=== PATIENT | female | born 1945 | race Caucasian/White ===

== ENCOUNTER → 2020-09-03 | Outpatient (CLI) | payer MEDICARE ==
[~2020-09-03] MED LIST: AMLO5TAB88 PO; ASPI-1497 PO; ATOR40TA70 PO; CHOL500063 PO; DOCU-286 PO; ELDERBERRY GUMMIES PO; GABA-531 PO; IBUP-2029 PO; LACTATED RINGERS 1,000 ML IV SCH; LISI-604 PO; VITAMIN B12 PO
== END | disposition home or self-care (01) ==
LOC: LAB 13:22
PROVIDERS: ATTEND Obstetrics & Gynecology
DX: Z01.812 Encounter for preprocedural laboratory examination (principal); Z20.828 Contact with and (suspected) exposure to other viral communicable diseases
CPT/HCPCS: C9803; U0003

== ENCOUNTER 2020-09-05 07:05 | Day surgery (SDC) | payer MEDICARE ==
[~2020-09-05] VITALS: Ht 139.7 cm; Wt 54.4 kg
[2020-09-05 07:40] LABS: BASOPHILS % 1.2 % (0.0-2.0); EOSINOPHILS % 7.1 % (0.0-5.0); HEMATOCRIT. 41.2 % (36.0-48.0); HEMOGLOBIN. 14.2 g/dL (12.0-16.0); LYMPHOCYTES % 26.5 % (20.0-50.0); MEAN CORPUSCULAR VOLUME 84.4 fL (81.0-99.0); MEAN PLATELET VOLUME 8.3 fl (7.4-10.4); MONOCYTES % 9.7 % (2.0-8.0); NEUTROPHILS % 55.5 % (40.0-76.0); PLATELET 329 x1000/uL (130-400); RED BLOOD CELL COUNT 4.88 mill/uL (4.2-5.4); RED CELL DISTRIBUTION WIDTH 12.9 % (11.6-14.6)
[2020-09-05 07:41] LABS: CLARITY URINE CLEAR (CLEAR); COLOR URINE YELLOW (YELLOW); KETONES URINE NEGATIVE (NEGATIVE); LEUKOCYTE ESTERASE URINE NEGATIVE (NEGATIVE); NITRITE URINE NEGATIVE (NEGATIVE); OCCULT BLOOD URINE 1+ (NEGATIVE); PROTEIN URINE NEGATIVE (NEGATIVE); UROBILINOGEN URINE 0.2 E.U./dL (0.2-1.0)
[2020-09-05 07:55] LABS: PARTIAL THROMBOPLASTIN TIME 29.4 sec (23.4-31.0); PROTHROMBIN TIME 10.3 sec (9.6-11.0)
[2020-09-05 08:10] LABS: CHLORIDE 103 mEq/L (98-107)
[2020-09-05] MEDS ORDERED: LIDOCAINE HCL/PF 1% 10 MG/ML 5ML VIAL ONE (09:14)
[2020-09-05] MEDS ORDERED: MIDAZOLAM HCL 2 MG/2 ML VIAL ONE (09:14)
[2020-09-05] MEDS ORDERED: PROPOFOL 200MG/20ML VIAL IV ONE (09:14)
[2020-09-05] MEDS ORDERED: FENTANYL CITRATE/PF 50MCG/ML 2ML VIAL ONE (09:14)
[2020-09-05] MEDS ORDERED: ONDANSETRON HCL 4MG/2ML INJ ONE (09:14)
[2020-09-05] MEDS ORDERED: SUCCINYLCHOLINE CHLORIDE 200MG/10ML IV ONE (09:14)
[2020-09-05] MEDS ORDERED: GLYCOPYRROLATE 0.2 MG/ML 2ML VIAL ONE (09:14)
[2020-09-05] MEDS ORDERED: METOCLOPRAMIDE HCL 10MG/2ML VIAL ONE (09:15)
[2020-09-05] MEDS ORDERED: ONDANSETRON HCL 4MG/2ML INJ IV PRN (11:00)
[2020-09-05] MEDS ORDERED: MORPHINE SULFATE 2 MG/ML CPJ (NOT FOR IM USE) IV PRN (11:00)
[2020-09-05] MEDS ORDERED: MEPERIDINE HCL/PF 25MG/ML CPJ IV PRN ×2 (11:00)
[2020-09-05] MEDS ORDERED: HYDROMORPHONE HCL/PF 2MG/ML CPJ IV PRN (11:00)
[2020-09-05] MEDS ORDERED: SODIUM CHLORIDE 0.9% 1,000 ML IV ONE (11:00)
[2020-09-05 11:14] VITALS: BP 126/67
== END 2020-09-05 12:00 | disposition home or self-care (01) ==
LOC: OR 07:05 → EDUNIT# 07:30 → OR 12:00
PROVIDERS: ATTEND Obstetrics & Gynecology
DX: N95.0 Postmenopausal bleeding (principal); N84.0 Polyp of corpus uteri; I10 Essential (primary) hypertension; E78.00 Pure hypercholesterolemia, unspecified; Z79.899 Other long term (current) drug therapy; Z98.890 Other specified postprocedural states; Z79.82 Long term (current) use of aspirin; Z88.8 Allergy status to other drugs, medicaments and biological substances
CPT/HCPCS: 36415; 58558; 80053; 81003; 85025; 85610; 85730; 86850; 86900; 86901; 88305; 93005; J0330; J2175; J2250; J2405; J2704; J2765; J3010; J3490